=== PATIENT | male | born 1960 | race Caucasian/White ===

== ENCOUNTER 2016-10-11 15:32 | Inpatient (IN) | payer BC ==
[~2016-10-11] VITALS: Ht 182.9 cm; Wt 86.9 kg
[2016-10-15] MEDS ORDERED: MULTTAB67 PO (12:11)
[2016-10-15] MEDS ORDERED: AMLO5TAB2 PO (12:11)
[2016-10-15] MEDS ORDERED: ZYRT10CA PO (12:11)
[2016-10-15] MEDS ORDERED: HYDR-3516 PO (12:11)
[2016-10-15] MEDS ORDERED: HYDR25TA35 PO (12:11)
[2016-10-17] VITALS (8 sets, daily range): BP systolic 115–152; BP diastolic 73–95; PULSE 45–67; RESP 15–19; TEMP 97.5–98.7; O2SAT 97–99
[2016-10-17] MEDS ORDERED: LACTATED RINGER'S 1000 ML IV SCH (06:30)
[2016-10-17] MEDS ORDERED: SODIUM CHLORID 0.9% 500 ML IV SCH (06:30)
[2016-10-17] MEDS ORDERED: ceFAZolin 1,000 MG/NS 100 ML IV SCH ×2 (06:30)
[2016-10-17] MEDS ORDERED: INSULIN HUMAN REGULAR 1,000 UNITS/10 ML VIAL SQ PRN (06:30)
[2016-10-17] MEDS ORDERED: METOPROLOL TARTRATE 25 MG TAB PO PRN (06:30)
[2016-10-17] MEDS ORDERED: fentaNYL CITRATE 250 MCG/5 ML AMP ONE ×2 (07:23→11:22)
[2016-10-17] MEDS ORDERED: MIDAZOLAM HCL 2 MG/2 ML VIAL ONE (07:23)
[2016-10-17] MEDS ORDERED: THROMBIN (TOPICAL) 5,000 UNIT VIAL ONE (08:12)
[2016-10-17] MEDS ORDERED: GELFOAM SIZE 100 ONE (08:12)
[2016-10-17] MEDS ORDERED: GENTAMICIN SULFATE 80 MG/2 ML VIAL ONE (08:12)
[2016-10-17] MEDS ORDERED: LIDOCAINE 1%/EPINEPHrine 1:100,000 SOLN 20 ML VIAL ONE (08:12)
[2016-10-17] MEDS ORDERED: *morphine SULFATE 8 MG/ML PERIprocedure ONLY ONE (11:24)
[2016-10-17] MEDS: D5-1/2 NS + KCL 20 MEQ INJ 1,000 ML IV SCH ×2 (11:40→22:49)
[2016-10-17] MEDS ORDERED: oxyCODONE/ACETAMINOPHEN 5 MG/325 MG TAB PO PRN (11:45)
[2016-10-17] MEDS ORDERED: cloNIDine HCL 0.1 MG TAB PO PRN (11:45)
[2016-10-17] MEDS: ENALAPRILAT 1.25 MG/ML VIAL IV PUSH SCH ×2 (11:45→19:45)
[2016-10-17] MEDS ORDERED: SODIUM CHLORIDE 0.9% FLUSH 5 ML FLUSH IVF PRN (11:45)
[2016-10-17] MEDS ORDERED: HYDROmorphone HCL PF 1 MG/ML VIAL IV PRN ×2 (11:45)
[2016-10-17] MEDS ORDERED: NALOXONE HCL 0.4 MG/ML AMP IV PRN (11:45)
[2016-10-17] MEDS ORDERED: ONDANSETRON HCL 4 MG/2 ML VIAL IV PUSH ONE (12:00)
[2016-10-17] MEDS ORDERED: PROPOFOL 200 MG/20 ML AMP IV ONE (12:00)
[2016-10-17] MEDS ORDERED: NEOSTIGMINE 3 MG/3 ML SYR IV ONE (12:00)
[2016-10-17] MEDS ORDERED: LACTATED RINGER'S 1000 ML INJ 1,000 ML IV ONE (12:00)
[2016-10-17] MEDS ORDERED: DO NOT ADM ANY ANTICOAGULANT DRUGS XX PRN (12:15)
[2016-10-17] MEDS: hydrALAZINE HCL 25 MG TAB PO SCH ×2 (13:00→17:34)
--- NOTE | 2016-10-17 15:39 | PD.OP ---
Operative Report Date of Surgery: Oct 17, 2016 Preoperative Diagnosis: (1) Chronic subdural hematoma Chronic right hemisphere subdural hematoma Postoperative Diagnosis: (1) Chronic subdural hematoma Chronic right hemisphere subdural hematoma Procedure: Right frontal craniotomy for evacuation subacute subdural hematoma Anesthesia: Gen. Surgeon: Kalin Castellanos Land Examiner(s): Milly Thompson Operation and Findings: Findings: Large chronic-appearing right hemisphere subdural hematoma with thick chronic subdural membrane formation. Procedure in detail: The patient was brought into the operating room and general endotracheal anesthesia induced without difficulty. The Olivarez catheter, and sequential compression devices were in place. The lines were established per anesthesia. The patient was placed in semilateral position on the 3080 table with the head on the horseshoe headrest. All extremities were appropriately padded Appropriate timeout procedure was performed with all personnel present and in agreement The right side of the head was shaved with the clippers and sterilely prepped and draped 1% Xylocaine was used for local infiltration over the incision site which was made over the right frontal area in a curvilinear fashion and carried sharply down to the cranium through the temporalis muscle and fascia. The scalp and temporalis muscle flap were elevated in a single layer with the periosteal elevator and retracted over a laparotomy sponge with the large scalp hooks. The manual control auger press operator was used to place a single bur hole in the posterior left frontoparietal region and the craniotome was used since to incise the bone flap. The dura was moderately tense upon removal of the bone flap. The dura was opened in a cruciate fashion and the edges retracted with 4-0 Nurolon suture. The large underlying subdural hematoma was evacuated with gentle suction and irrigation until clear There was a thick subdural membrane, which was entirely removed with the [place] dissectors and biopsy forceps. The bipolar forceps were used to control any bleeding at the operative site, including the inner dura at the site of the subdural membrane formation. The brain was soft and pulsatile at the time of closure. A 7 mm flat fluted drain was left in place in the subdural space The drains was brought out through incisions in the posterior parietal region and secured to the skin with nylon suture The closure was performed with 2-0 Vicryl for the temporalis muscle fascia and galeal closure and alta for the skin closure. A dressing of sterile Telfa, 4 x 4's, and a loose head stockinette was applied. The patient was taken to recovery room in stable condition All counts were correct at the end of the case. Estimated blood loss was 150 cc No specimen was sent to pathology Kalin Castellanos MD Oct 17, 2016 15:39
[2016-10-17] MEDS: MORPHINE SULFATE 4 MG/ML INJ IV PRN ×2 (16:22→20:41)
[2016-10-17] MEDS: SODIUM CHLORIDE 0.9% FLUSH 5 ML FLUSH IVF SCH (21:00)
[2016-10-18] VITALS (15 sets, daily range): BP systolic 107–133; BP diastolic 69–86; PULSE 41–67; RESP 11–16; TEMP 97.9–98.9; O2SAT 12–99
[2016-10-18] MEDS: ACETAMINOPHEN/HYDROcodone 325 MG/10 MG TAB PO PRN ×5 (00:34→22:41)
[2016-10-18] MEDS: ENALAPRILAT 1.25 MG/ML VIAL IV PUSH SCH ×3 (03:45→20:00)
[2016-10-18 04:28] LABS: AUTOMATED NEUTROPHIL # 7.8 TH/MM3 (1.8-7.7); BASOPHIL % 0.2 % (0.0-2.0); EOSINOPHIL % 0.1 % (0.0-4.0); HEMATOCRIT 36.4 % (39.0-51.0); HEMO FLAGS DIFF FINAL; LYMPH % 10.6 % (9.0-44.0); MEAN CELL VOLUME 81.3 FL (80.0-100.0); MEAN CORPUSCULAR HEMOGLOBIN 28.2 PG (27.0-34.0); MEAN CORPUSCULAR HGB CONC 34.6 % (32.0-36.0); MONO % 10.1 % (0.0-8.0); PLATELET COUNT 268 TH/MM3 (150-450); RED BLOOD COUNT 4.48 MIL/MM3 (4.50-5.90); RED CELL DISTRIBUTION WIDTH 13.9 % (11.6-17.2); WHITE BLOOD COUNT 9.9 TH/MM3 (4.0-11.0)
[2016-10-18 04:36] LABS: APTT (PATIENT) 26.6 SEC (24.3-30.1); PROTHROMBIN TIME - PATIENT 11.1 SEC (9.8-11.6)
[2016-10-18 05:12] LABS: BICARBONATE 25.9 MEQ/L (21.0-32.0); POTASSIUM 3.7 MEQ/L (3.5-5.1)
--- NOTE | 2016-10-18 05:22 | RADRPT ---
EXAM DATE/TIME: 10/18/2016 04:52 [facility] COMPARISON: CT BRAIN W/O CONTRAST, July 13, 2016, 19:40. INDICATIONS : Follow up subural hematoma. Post operative. RADIATION DOSE: 47.15 CTDIvol (mGy) MEDICAL HISTORY : None SURGICAL HISTORY : Craniotomy. ENCOUNTER: Subsequent ACUITY: 1 month PAIN SCALE: Non-responsive LOCATION: cranial TECHNIQUE: Multiple contiguous axial images were obtained of the head. Using automated exposure control and adj ustment of the mA and/or kV according to patient size, radiation dose was kept as low as reasonably a chievable to obtain optimal diagnostic quality images. FINDINGS: Extra-axial drain is in place the rectal region following evacuation of subdural hematoma. Small volu me subdural hematoma remains. There is no significant mass effect or midline shift. No intraparenchym al hematoma is identified. Extensive mucosal disease is present in the paranasal sinuses. Posterior f diana structures are unremarkable. CONCLUSION: 1. Postsurgical changes as above.No acute intraparenchymal hematoma is identified Frandy Bates MD on October 18, 2016 at 5:18 Board Certified Radiologist. This report was verified electronically.
[2016-10-18] MEDS: MORPHINE SULFATE 4 MG/ML INJ IV PRN (05:40)
[2016-10-18] MEDS: D5-1/2 NS + KCL 20 MEQ INJ 1,000 ML IV SCH ×3 (08:10→20:00)
[2016-10-18] MEDS: hydrALAZINE HCL 25 MG TAB PO SCH ×3 (08:10→17:24)
[2016-10-18] MEDS: MULTIVITAMIN TAB PO SCH (08:10)
[2016-10-18] MEDS: CETIRIZINE HCL 10 MG TAB PO SCH (08:10)
[2016-10-18] MEDS: SODIUM CHLORIDE 0.9% FLUSH 5 ML FLUSH IVF SCH ×2 (08:10→20:00)
[2016-10-18] MEDS: amLODIPine BESYLATE 5 MG TAB PO SCH (08:10)
[2016-10-18] MEDS ORDERED: amLODIPine BESYLATE 5 MG TAB PO SCH (09:00)
--- NOTE | 2016-10-18 19:06 | HHI.NSPN ---
History Chief Complaint: mild headache Interval History Status post right craniotomy evacuation of chronic subdural hematoma 10/17/16 10/18/16: Postoperative CT scan satisfactory. Mild to moderate residual hematoma along the convexity. Exam Results Vital Signs Date Time Temp Pulse Resp B/P Pulse Ox O2 Delivery O2 Flow Rate FiO2 10/18/16 18:00 67 10/18/16 16:00 98.9 12 107/86 98 10/18/16 09:52 Nasal Cannula 2.00 10/17/16 20:28 21 Intake and Output 10/17/16 10/17/16 10/18/16 08:00 16:00 00:00 Intake Total 1220 ml 940 ml Output Total 600 ml 760 ml Balance 620 ml 180 ml Physical Examination Moderate drain output Cardiac regular without murmur Respirations clear to auscultation Abdomen soft without tenderness Incision dry and intact Awake and alert Oriented X 3 Speech is clear Conversant and appropriate Follow simple commands well Answers questions appropriately Reasonable judgment and insight Recent and remote memory are intact No evidence of anxiety or depression Pupils are equal and reactive to accommodation. Extra-ocular movements, visual christina to confrontation, facial sensorimotor, tongue, palate, sternocleidomastoid testing, hearing to finger rub testing, and bilateral shoulder shrug are all intact. Sensation is intact to light touch in all extremities Strength normal major flexion and extension groups all extremities Fay's absent bilaterally No ankle clonus Plantar responses absent bilateral Fine motor movements intact upper extremities Lab, Micro, Other Results Laboratory Tests Test 10/18/16 03:20 White Blood Count 9.9 TH/MM3 Red Blood Count 4.48 MIL/MM3 Hemoglobin 12.6 GM/DL Hematocrit 36.4 % Mean Corpuscular Volume 81.3 FL Mean Corpuscular Hemoglobin 28.2 PG Mean Corpuscular Hemoglobin 34.6 % Concent Red Cell Distribution Width 13.9 % Platelet Count 268 TH/MM3 Mean Platelet Volume 7.0 FL Neutrophils (%) (Auto) 79.0 % Lymphocytes (%) (Auto) 10.6 % Monocytes (%) (Auto) 10.1 % Eosinophils (%) (Auto) 0.1 % Basophils (%) (Auto) 0.2 % Neutrophils # (Auto) 7.8 TH/MM3 Lymphocytes # (Auto) 1.0 TH/MM3 Monocytes # (Auto) 1.0 TH/MM3 Eosinophils # (Auto) 0.0 TH/MM3 Basophils # (Auto) 0.0 TH/MM3 CBC Comment DIFF FINAL Differential Comment Prothrombin Time 11.1 SEC Prothromb Time International 1.0 RATIO Ratio Activated Partial 26.6 SEC Thromboplast Time Sodium Level 138 MEQ/L Potassium Level 3.7 MEQ/L Chloride Level 103 MEQ/L Carbon Dioxide Level 25.9 MEQ/L Anion Gap 9 MEQ/L Blood Urea Nitrogen 13 MG/DL Creatinine 0.90 MG/DL Estimat Glomerular Filtration 87 ML/MIN Rate Random Glucose 127 MG/DL Calcium Level 8.1 MG/DL Last Impressions Head CT 10/18/16 0600 Signed Impressions: Service Date/Time: Tuesday, October 18, 2016 04:52 - CONCLUSION: 1. Postsurgical changes as above.No acute intraparenchymal hematoma is identified Frandy Bates MD Medical Decision Making Impression and Plan Impression: 1. Stable neurologic exam postop day #1 right craniotomy evacuation of chronic subdural hematoma. Plan: Advanced diet Increased activity, out of bed Physical therapy DC IV fluids DC Olivarez catheter Continue draining at present Plan follow-up CT scan head 10/20/16 if remains neurologically stable with discontinuation of drain as indicated. Kalin Castellanos MD Oct 18, 2016 19:06
[2016-10-19] VITALS (14 sets, daily range): BP systolic 108–129; BP diastolic 66–81; PULSE 48–60; RESP 12–20; TEMP 97.6–98.4; O2SAT 92–97
[2016-10-19] MEDS: ENALAPRILAT 1.25 MG/ML VIAL IV PUSH SCH ×3 (03:45→19:45)
--- NOTE | 2016-10-19 08:05 | HHI.NSPN ---
History Chief Complaint: mild headache Interval History Status post right craniotomy evacuation of chronic subdural hematoma 10/17/16 10/18/16: Postoperative CT scan satisfactory. Mild to moderate residual hematoma along the convexity. 10/19/16: Pt with mild right frontal headache intermittently controlled with medication. He states his speech is improving. He also reports his strength in his hands is improving. Review of Systems General: Negative for: fever, chills, insomnia Respiratory: Negative for: shortness of breath, cough, sputum Cardiovascular: Negative for: chest pain Gastrointestinal: Negative for: nausea, vomitting, diarrhea, constipation Exam Results Vital Signs Date Time Temp Pulse Resp B/P Pulse Ox O2 Delivery O2 Flow Rate FiO2 10/19/16 07:00 95 Room Air 10/19/16 06:00 48 10/19/16 04:00 97.8 20 128/73 10/18/16 19:51 21 10/18/16 09:52 2.00 Intake and Output 10/18/16 10/18/16 10/19/16 08:00 16:00 00:00 Intake Total 1031 ml 1180 ml 1303 ml Output Total 855 ml 870 ml 590 ml Balance 176 ml 310 ml 713 ml Physical Examination Resp: CTA bilaterally Heart: NSR no murmurs Abd: Soft positive bs Skin: Incision clean and dry. No signs of infection. RODRÍGUEZ drain in place draining well. Muscle: Moves all 4 extremities well. Neuro: Pt awake and alert. Follows commands well speech clear and appropriate. Pupils 3mm bilaterally. Lab, Micro, Other Results Last Impressions Head CT 10/18/16 0600 Signed Impressions: Service Date/Time: Tuesday, October 18, 2016 04:52 - CONCLUSION: 1. Postsurgical changes as above.No acute intraparenchymal hematoma is identified Frandy Bates MD 10/18/16 10/18/16 10/19/16 15:00 23:00 07:00 Intake Total 1180 ml 1303 ml 1069 ml Output Total 870 ml 590 ml 570 ml Balance 310 ml 713 ml 499 ml Intake Oral 480 ml 600 ml 200 ml IV Total 700 ml 703 ml 869 ml Output Urine Total 750 ml 450 ml 400 ml Drainage Total 120 ml 140 ml 170 ml # Bowel Movements 0 0 Medical Decision Making Impression and Plan A: 56 y/o M s/p craniotomy for subdural hemorrhage evacuation. P: Follow up CT head tomorrow. Continue with RODRÍGUEZ drain for now Continue with rehab efforts. Barry Guardado Oct 19, 2016 08:05
[2016-10-19] MEDS: SODIUM CHLORIDE 0.9% FLUSH 5 ML FLUSH IVF SCH ×2 (08:21→20:42)
[2016-10-19] MEDS: CETIRIZINE HCL 10 MG TAB PO SCH (08:22)
[2016-10-19] MEDS: MULTIVITAMIN TAB PO SCH (08:22)
[2016-10-19] MEDS: hydrALAZINE HCL 25 MG TAB PO SCH ×3 (08:22→18:03)
[2016-10-19] MEDS: amLODIPine BESYLATE 5 MG TAB PO SCH (08:22)
[2016-10-19] MEDS: ACETAMINOPHEN/HYDROcodone 325 MG/10 MG TAB PO PRN ×3 (08:28→18:03)
[2016-10-19] MEDS: D5-1/2 NS + KCL 20 MEQ INJ 1,000 ML IV SCH ×2 (13:32→23:33)
[2016-10-20] VITALS (13 sets, daily range): BP systolic 117–135; BP diastolic 67–81; PULSE 52–65; RESP 12–16; TEMP 97.5–98.3; O2SAT 93–95
[2016-10-20] MEDS ORDERED: ATROPINE SULFATE 1 MG/10 ML SYRINGE ONE (03:05)
[2016-10-20] MEDS ORDERED: EPINEPHrine HCL (1:10,000) 1 MG/10 ML SYRINGE ONE (03:05)
[2016-10-20] MEDS ORDERED: LIDOCAINE HCL 2% 100 MG/5 ML SYRINGE ONE (03:06)
[2016-10-20] MEDS: ENALAPRILAT 1.25 MG/ML VIAL IV PUSH SCH ×3 (03:45→19:45)
[2016-10-20] MEDS: ACETAMINOPHEN/HYDROcodone 325 MG/10 MG TAB PO PRN ×5 (04:36→21:48)
--- NOTE | 2016-10-20 05:12 | RADRPT ---
EXAM DATE/TIME: 10/20/2016 04:54 [facility] COMPARISON: CT BRAIN W/O CONTRAST, October 18, 2016, 4:52. INDICATIONS : Follow up subdural hematoma. RADIATION DOSE: 56.35 CTDIvol (mGy) MEDICAL HISTORY : Hypertension. SURGICAL HISTORY : Craniotomy. ENCOUNTER: Subsequent ACUITY: 2 days PAIN SCALE: 0/10 LOCATION: cranial TECHNIQUE: Multiple contiguous axial images were obtained of the head. Using automated exposure control and adj ustment of the mA and/or kV according to patient size, radiation dose was kept as low as reasonably a chievable to obtain optimal diagnostic quality images. FINDINGS: There is still postsurgical changes with extra-axial drain in place. There has been no significant ch kieran when compared to the prior exam. No acute hemorrhage is seen. A small amount of pneumocephalus i s present in the right frontopolar region. Posterior fossa structures are unremarkable. Extensive sin us disease is present with sparing of the sphenoid. CONCLUSION: 1. Stable postsurgical changes. No acute hemorrhage is identified Frandy Bates MD on October 20, 2016 at 5:09 Board Certified Radiologist. This report was verified electronically.
--- NOTE | 2016-10-20 06:57 | HHI.NSPN ---
(Barry Guardado) History Chief Complaint: mild headache (Barry Guardado) Interval History Status post right craniotomy evacuation of chronic subdural hematoma 10/18/16: Postoperative CT scan satisfactory. Mild to moderate residual hematoma along the convexity. 10/19/16: Pt with mild right frontal headache intermittently controlled with medication. He states his speech is improving. He also reports his strength in his hands is improving.10/20/16 10/17/16: Pt awake with right frontal headache intermittently controlled with pain medication. No nausea or vomiting. No weakness or paresthesias. Pt states speech and hand strength continue to improve. (Barry Guardado) Exam Results Vital Signs Date Time Temp Pulse Resp B/P Pulse Ox O2 Delivery O2 Flow Rate FiO2 10/20/16 06:00 52 10/20/16 04:00 97.7 12 135/77 94 10/19/16 21:10 21 10/19/16 19:00 Room Air 10/18/16 09:52 2.00 Intake and Output 10/19/16 10/19/16 10/20/16 08:00 16:00 00:00 Intake Total 1069 ml 1141 ml 964 ml Output Total 570 ml 140 ml 840 ml Balance 499 ml 1001 ml 124 ml (Barry Guardado) Physical Examination Resp: CTA bilaterally Heart: NSR no murmurs Abd: Soft positive bs Skin: Incision clean and dry. No signs of infection. RODRÍGUEZ drain in place draining well. Muscle: Moves all 4 extremities well. Neuro: Pt awake and alert. Follows commands well speech clear and appropriate. Pupils 3mm bilaterally. (Barry Guardado) Lab, Micro, Other Results Last Impressions Head CT 10/18/16 0600 Signed Impressions: Service Date/Time: Tuesday, October 18, 2016 04:52 - CONCLUSION: 1. Postsurgical changes as above.No acute intraparenchymal hematoma is identified Frandy Bates MD 10/19/16 10/19/16 10/20/16 15:00 23:00 07:00 Intake Total 1141 ml 964 ml 1070 ml Output Total 140 ml 840 ml 665 ml Balance 1001 ml 124 ml 405 ml Intake Oral 480 ml 400 ml 350 ml IV Total 661 ml 564 ml 720 ml Output Urine Total 775 ml 600 ml Drainage Total 140 ml 65 ml 65 ml # Voids 1 # Bowel Movements 0 0 0 (Barry Guardado) Medical Decision Making Impression and Plan A: 56 y/o M s/p craniotomy for subdural hemorrhage evacuation. P: Discontinue RODRÍGUEZ drain. Continue with rehab efforts. Addendum: RODRÍGUEZ exit site was cleaned with Betadine swab. Sterile field was used. 1.5 cc of Lidocaine 1% with epi was used for local anesthetic. RODRÍGUEZ drain was removed. Two alta were placed using sterile technique. Pt did well. All needles were counted and disposed of in sharps container. (Barry Guardado ) Attending Statement The exam, history, and the medical decision-making described in the above note were completed with the assistance of the mid-level provider. I reviewed and agree with the findings presented. I attest that I had a [id number] encounter with the patient on the same day, and personally performed and documented my assessment and findings in the medical record. Improved postoperative CT scan and will DC subdural drain and transfer to floor. (Jeff Corral MD) Barry Guardado Oct 20, 2016 06:57 Jeff Corral MD Oct 20, 2016 09:26
[2016-10-20] MEDS: hydrALAZINE HCL 25 MG TAB PO SCH ×3 (08:35→17:57)
[2016-10-20] MEDS: MULTIVITAMIN TAB PO SCH (08:35)
[2016-10-20] MEDS: CETIRIZINE HCL 10 MG TAB PO SCH (08:35)
[2016-10-20] MEDS: SODIUM CHLORIDE 0.9% FLUSH 5 ML FLUSH IVF SCH ×2 (08:36→19:53)
[2016-10-20] MEDS: amLODIPine BESYLATE 5 MG TAB PO SCH (08:36)
[2016-10-20] MEDS: D5-1/2 NS + KCL 20 MEQ INJ 1,000 ML IV SCH (08:37)
[2016-10-20] MEDS ORDERED: LIDOCAINE 1%/EPINEPHrine 1:100,000 SOLN 20 ML VIAL INFIL ONE (10:00)
[2016-10-21] VITALS: BP 126/77; PULSE 60; RESP 19; TEMP 98.2; O2SAT 95
[2016-10-21 03:00] VITALS: BP 137/76; PULSE 59; RESP 20; TEMP 99.2; O2SAT 96
[2016-10-21] MEDS: ACETAMINOPHEN/HYDROcodone 325 MG/10 MG TAB PO PRN ×3 (03:13→12:54)
[2016-10-21] MEDS: ENALAPRILAT 1.25 MG/ML VIAL IV PUSH SCH ×2 (03:45→11:45)
[2016-10-21 08:00] VITALS: BP_SYST 119; BP_SYST 121; BP_DIAS 64; BP_DIAS 83; PULSE 56; PULSE 75; RESP 18; RESP 20; TEMP 97.9; TEMP 98.1; O2SAT 94; O2SAT 96
[2016-10-21] MEDS: amLODIPine BESYLATE 5 MG TAB PO SCH (08:49)
[2016-10-21] MEDS: hydrALAZINE HCL 25 MG TAB PO SCH ×2 (08:49→12:48)
[2016-10-21] MEDS: MULTIVITAMIN TAB PO SCH (08:49)
[2016-10-21] MEDS: CETIRIZINE HCL 10 MG TAB PO SCH (08:49)
[2016-10-21] MEDS: SODIUM CHLORIDE 0.9% FLUSH 5 ML FLUSH IVF SCH (08:50)
[2016-10-21 09:51] VITALS: O2SAT 96
[2016-10-21 12:00] VITALS: BP 116/78; PULSE 74; RESP 18; TEMP 97.7; O2SAT 96
--- NOTE | 2016-10-21 16:16 | HHI.DCPOC ---
Discharge Care Plan Diagnosis: (1) Chronic subdural hematoma Your Health Problems Are: Difficulty with ADL Incision/Drains Exercise Tolerance Goals to Promote Your Health * To prevent worsening of your condition and complications * To maintain your health at the optimal level Directions to Meet Your Goals Take your medications as prescribed Follow your dietary instruction Follow activity as directed Keep your appointments as scheduled Take your immunizations and boosters as scheduled If your symptoms worsen call your PCP, if no PCP go to Urgent Care Center or Emergency Room Smoking is Dangerous to Your Health. Avoid second hand smoke Call the 24-hour hour crisis hotline for domestic abuse at Kalin Castellanos MD Oct 21, 2016 16:16
--- NOTE | 2016-10-21 16:23 | HHI.DS ---
Discharge Summary Admission Date Oct 17, 2016 at 05:46 Discharge Date: Oct 21, 2016 Admitting Diagnosis Right hemisphere chronic subdural hematoma (1) Chronic subdural hematoma Diagnosis: Principal Procedures Date of Surgery: Oct 17, 2016 Preoperative Diagnosis: (1) Chronic subdural hematoma Chronic right hemisphere subdural hematoma Postoperative Diagnosis: (1) Chronic subdural hematoma Chronic right hemisphere subdural hematoma Procedure: Right frontal craniotomy for evacuation subacute subdural hematoma CBC/BMP: 10/18/16 0320 10/18/16 0320 Imaging Last Impressions Head CT 10/20/16 0600 Signed Impressions: Service Date/Time: Thursday, October 20, 2016 04:54 - CONCLUSION: 1. Stable postsurgical changes. No acute hemorrhage is identified Frandy Bates MD PE at Discharge Awake and alert Respirations clear Pulse regular Incision dry and intact Speech clear and appropriate Extraocular movements intact Sensation intact to all extremities Moves all extremities well with good strength to command Ambulates without assist Hospital Course Patient admitted for above noted procedure performed without complication. Uncomplicated postoperative course. Physical therapy postoperative. Drain discontinued 10/20/16 10/21/16, vital signs stable, tolerating diet well, pain well controlled with oral medications, ambulating safely. Pt Condition on Discharge: Stable Discharge Disposition: Discharge Home Discharge Instructions DIET: Follow Instructions for: As Tolerated, No Restrictions ACTIVITIES You can perform: Weight Bearing As Fred Activities to Avoid: Lifting/Bending, Strenuous Activity Follow up Referrals: Appointment for Follow Up @ Dr. Kalin Castellanos Continued Medications: Amlodipine (Amlodipine) 5 Mg Tab 5 MG PO DAILY Blood Pressure Management #30 Ref 0 TAB Cetirizine (Zyrtec Allergy) 10 Mg Cap 10 MG PO DAILY Allergies Ref 0 CAP Hydralazine (Hydralazine) 25 Mg Tab 25 MG PO TID Take with a meal Blood Pressure Management #90 Ref 0 TAB Hydrocodone-Acetaminophen (Hydrocodone-Acetaminophen) 5-325 mg Tab 1 TAB PO Q6H PRN PAIN Ref 0 TAB Multiple Vitamin (Multiple Vitamin) 1 Tab 1 TAB PO DAILY Nutritional Supplement Ref 0 TAB Kalin Castellanos MD Oct 21, 2016 16:23
--- NOTE | 2016-10-21 16:43 | HHI.NSPN ---
History Chief Complaint: mild headache Interval History Status post right craniotomy evacuation of chronic subdural hematoma 10/17/16 10/18/16: Postoperative CT scan satisfactory. Mild to moderate residual hematoma along the convexity. 10/20/16: CT scan head postoperative satisfactory. Drains removed 10/21/16: Incision dry. Awake and alert. No focal neurologic deficit. Exam Results Vital Signs Date Time Temp Pulse Resp B/P Pulse Ox O2 Delivery O2 Flow Rate FiO2 10/21/16 13:01 96 Room Air 10/21/16 12:00 97.7 74 18 116/78 10/21/16 09:51 1.00 10/20/16 07:48 21 Intake and Output 10/20/16 10/20/16 10/21/16 08:00 16:00 00:00 Intake Total 1070 ml 1238 ml 964 ml Output Total 665 ml 70 ml 580 ml Balance 405 ml 1168 ml 384 ml Physical Examination Resp: CTA bilaterally Heart: NSR no murmurs Abd: Soft positive bs Skin: Incision clean and dry. No signs of infection. RODRÍGUEZ drain has been removed Muscle: Moves all 4 extremities well. Neuro: Pt awake and alert. Follows commands well speech clear and appropriate. Pupils 3mm bilaterally. Ambulating well without assistance. Medical Decision Making Impression and Plan Impression: 1. Stable neurologic exam following right craniotomy for chronic subdural hematoma. 10/20/[address] scan had satisfactory Plan: Continue regular diet Physical therapy notes reviewed Findings discussed at length with the patient and his family in the patient's room today. He appears stable for discharge home today Wound care, activity precautions, signs and symptoms to watch for have been fully discussed. Follow-up appointment tentatively 10/30/16 at 10:30 AM. He will notify our office if any problems arise. He states that he has hydrocodone at home, and does not request any additional medications at this time. Kalin Castellanos MD Oct 21, 2016 16:43
[2016-10-30] MEDS ORDERED: HYDR-3516 PO (10:33)
[2016-11-27] MEDS ORDERED: LIDO5DIS35 TOPICAL (15:42)
[2017-03-12] MEDS ORDERED: HYDR-3801 PO (14:43)
[2017-03-12] MEDS ORDERED: CETI10 PO (14:43)
== END 2016-10-21 17:02 | disposition home or self-care (01) | DRG 27 ==
LOC: HSDI 10-17 05:46 → N03A 10-17 13:45 → N05B 10-21 03:02
PROVIDERS: ADMIT Neurological Surgery; ATTEND Neurological Surgery
PROC: 00B20ZZ Excision of Dura Mater, Open Approach (ICD-10-PCS; 2016-10-17)
PROC: 00940ZZ Drainage of Intracranial Subdural Space, Open Approach (ICD-10-PCS; principal; 2016-10-17 08:29)
DX: I62.03 Nontraumatic chronic subdural hemorrhage (principal); I10 Essential (primary) hypertension; K21.9 Gastro-esophageal reflux disease without esophagitis; F17.210 Nicotine dependence, cigarettes, uncomplicated; F10.10 Alcohol abuse, uncomplicated
CPT/HCPCS: 36415; 70450; 71020; 80048; 85025; 85027; 85610; 85730; 93005; 94150; C1713; J0171; J0461; J0690; J1170; J1580; J2250; J2270; J2405; J2710; J3010; J3480; J7120

== ENCOUNTER → 2016-10-15 | Outpatient (CLI) | payer BC ==
[~2016-10-15] MED LIST: AMLO5 PO; AMLO5TAB2 PO; BACT400T PO; CETI10 PO; HYDR-3516 PO; HYDR-3801 PO; HYDR25TA35 PO; HYDR50TA15 PO; LIDO5DIS35 TOPICAL; MULTTAB67 PO; NAPR250T PO; Pill Splitter OTHER; ZYRT10CA PO
[2016-10-15 12:20] LABS: HEMATOCRIT 42.8 % (39.0-51.0); MEAN CELL VOLUME 81.4 FL (80.0-100.0); MEAN CORPUSCULAR HEMOGLOBIN 27.8 PG (27.0-34.0); MEAN CORPUSCULAR HGB CONC 34.1 % (32.0-36.0); PLATELET COUNT 251 TH/MM3 (150-450); RED BLOOD COUNT 5.26 MIL/MM3 (4.50-5.90); REVIEW FLAG FINAL; WHITE BLOOD COUNT 6.4 TH/MM3 (4.0-11.0)
[2016-10-15 12:30] LABS: APTT (PATIENT) 29.8 SEC (24.3-30.1); PROTHROMBIN TIME - PATIENT 10.7 SEC (9.8-11.6)
[2016-10-15 13:01] LABS: BICARBONATE 29.6 MEQ/L (21.0-32.0); POTASSIUM 4.3 MEQ/L (3.5-5.1)
--- NOTE | 2016-10-15 13:21 | RADRPT ---
EXAM DATE/TIME: 10/15/2016 12:58 [facility] COMPARISON: CT BRAIN W/O CONTRAST, July 13, 2016, 19:40. INDICATIONS : Evaluate for penumonia, penumothorax, or communicable disease. Pre op for craniotomy. MEDICAL HISTORY : Hypercholesterolemia. Gastroesophageal reflux disease. Arthritis. Asthma. Degenerative disc disea se.Smoker. SURGICAL HISTORY : Vasectomy ENCOUNTER: Initial ACUITY: 1 day PAIN SCORE: 0/10 LOCATION: chest FINDINGS: PA and lateral views of the chest demonstrate the lungs to be symmetrically aerated without evidence of mass, infiltrate or effusion. The cardiomediastinal contours are unremarkable. Osseous structure s are intact. CONCLUSION: No acute disease. Alina Mckenzie MD on October 15, 2016 at 13:19 Board Certified Radiologist. This report was verified electronically.
--- NOTE | 2016-10-16 22:50 | EKG ---
Date Performed: 10/15/2016 Time Performed: 12:02:51 PTAGE: 56 years EKG: SINUS BRADYCARDIA BORDERLINE ECG NO PREVIOUS TRACING DOCTOR: Eduardo Sharif Interpretating Date/Time 10/16/2016 22:46:18
== END ==
LOC: CPRE 11:23
PROVIDERS: ATTEND Neurological Surgery
DX: Z01.810 Encounter for preprocedural cardiovascular examination (principal); Z01.812 Encounter for preprocedural laboratory examination; M25.512 Pain in left shoulder; R41.840 Attention and concentration deficit; S06.9X1D Unspecified intracranial injury with loss of consciousness of 30 minutes or less, subsequent encounter; D18.1 Lymphangioma, any site; Z79.01 Long term (current) use of anticoagulants; R00.1 Bradycardia, unspecified
CPT/HCPCS: 36415; 71020; 80048; 85027; 85610; 85730; 93005

== ENCOUNTER 2017-01-16 16:19 | Emergency (ER) | payer BC ==
[~2017-01-16] VITALS: Ht 185.4 cm; Wt 86.0 kg
[~2017-01-16 16:19] MED LIST changes: -AMLO5 PO; -BACT400T PO; -CETI10 PO; -HYDR-3801 PO; -HYDR50TA15 PO; -NAPR250T PO; -Pill Splitter OTHER
[2017-01-16 16:21] VITALS: BP 157/96; PULSE 68; RESP 20; TEMP 98.5; O2SAT 98
--- NOTE | 2017-01-16 17:50 | PD ---
Physical Exam Time Seen by Provider: 17:47 Narrative 56yo M with nystagmus x 3-[address] Castellanos for CT scan. TBI in October w/ craniotomy. Dizziness with sudden movement. Denies BOWEN, lightheadedness, vomiting. Also complaining of "dent" in head to craniotomy site. VSS. Patient seen in triage. Awaiting bed placement. Data Data Last Documented VS Vital Signs Date Time Temp Pulse Resp B/P Pulse Ox O2 Delivery O2 Flow Rate FiO2 01/16/17 16:21 98.5 68 20 157/96 98 Room Air [facility] Supervised Visit with YKLE: Rebeka Lewis Jan 16, 2017 17:50
[2017-01-16] MEDS ORDERED: BACT400T PO (19:45)
--- NOTE | 2017-01-16 20:08 | RADRPT ---
EXAM DATE/TIME: 01/16/2017 19:44 [facility] COMPARISON: CT BRAIN W/O CONTRAST, October 20, 2016, 4:54. INDICATIONS : Previous TIA and craniotomy; depression of craniotomy site. RADIATION DOSE: 43.88 CTDIvol (mGy) MEDICAL HISTORY : Hypertension. Cerebrovascular disease. Stroke. SURGICAL HISTORY : Craniotomy. ENCOUNTER: Initial ACUITY: 1 day PAIN SCALE: 0/10 LOCATION: cranial TECHNIQUE: Multiple contiguous axial images were obtained of the head. Using automated exposure control and adj ustment of the mA and/or kV according to patient size, radiation dose was kept as low as reasonably a chievable to obtain optimal diagnostic quality images. FINDINGS: There has been previous right frontal craniotomy. The replaced flap appears stable in position and ap pearance. Brain is benign in appearance with minimal spontaneously dense thickening of the subjacent dura. The brain is elsewhere symmetric and unremarkable. Ventricles are normal. There is extensive confluent mucosal sinus disease. The mastoids and middle ear cavities are clear. CONCLUSION: Benign brain appearance. Craniotomy flap appear satisfactory and stable. Extensive sinus disease Aki Ratliff MD on January 16, 2017 at 20:00 Board Certified Radiologist. This report was verified electronically.
--- NOTE | 2017-01-16 20:18 | PD ---
HPI Chief Complaint: Eye Problems/Injury Time Seen by Provider: 19:30 Travel History International Travel<30 days: No Contact w/Intl Traveler<30days: No Traveled to known affect area: No History of Present Illness HPI Patient is a 56-year-old male presenting to emergency for evaluation of nystagmus, memory issues, and evaluation of his surgical site. Patient had a craniotomy in October to evacuate a subdural hematoma. His states that he has had issues with his eyes jerking back and forth for the last 2 days. She states it lasts about 2-3 seconds. Patient has not had any visual changes or awareness of the nystagmus. Patient does state that craniotomy site appears more indented. He also reports that his memory has gotten worse over the last 4 -6 weeks. Patient is followed by Dr. Castellanos, and he was advised to him to emergency department to have the CT scan performed. Patient had shoulder surgery Friday and has been on pain medication for this. He also states he has not been sleeping well since surgery due to the pain. PFSH Past Medical History Arthritis: Yes Asthma: Yes Autoimmune Disease: No Anxiety: Yes Depression: No Heart Rhythm Problems: No Cancer: No High Cholesterol: Yes (Doesn't take meds) Chemotherapy: No Chest Pain: No Congestive Heart Failure: No COPD: No Cerebrovascular Accident: No Diabetes: No Endocrine: No Gastrointestinal Disorders: Yes (previous hx of acid reflux, resolved, no meds) GERD: Yes Genitourinary: No Hepatitis: No Hiatal Hernia: No Hypertension: Yes (on meds) Immune Disorder: No Implanted Vascular Access Dvce: Yes Medical other: Yes (seasonal allergies) Musculoskeletal: Yes (left shoulder poss torn rotator cuff, bilat knee pain) Neurologic: Yes (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, [place] hematoma 10/2016) Reproductive: No Migraines: Yes Radiation Therapy: No Seizures: No Sickle Cell Disease: No Sleep Apnea: No Thyroid Disease: No Ulcer: No Tetanus Vaccination: Unknown Past Surgical History Abdominal Surgery: No AICD: No Arteriovenous Shunt: No Cardiac Surgery: No Ear Surgery: No Endocrine Surgery: No Eye Surgery: No Genitourinary Surgery: No Gynecologic Surgery: No Insulin Pump: No Joint Replacement: No Neurologic Surgery: Yes (craniotomy with evacuation of subdural hematoma 10/22) Oral Surgery: No Pacemaker: No Thoracic Surgery: No Other Surgery: Yes (left shoulder surgery 01/20) Social History Alcohol Use: Yes (occ) Tobacco Use: Yes (vaporizer) Substance Use: No Allergies-Medications (Allergen,Severity, Reaction): Coded Allergies: No Known Allergies (Unverified , 01/16/17) Reported Meds & Prescriptions Reported Meds & Active Scripts Active Lidoderm Patch 12 HR (Lidocaine) 5% Patch 1 Patch TOPICAL DAILY Remove patch after 12 hours apply to L shoulder Reported Bactrim (Sulfamethoxazole-Trimethoprim) 400-80 Mg Tab 1 Tab PO BID Zyrtec Allergy (Cetirizine HCl) 10 Mg Cap 10 Mg PO DAILY Multiple Vitamin 1 Tab 1 Tab PO DAILY Hydrocodone-Acetaminophen 5-325 mg Tab 1 Tab PO Q6H PRN Hydralazine (Hydralazine HCl) 25 Mg Tab 25 Mg PO TID Take with a meal Amlodipine (Amlodipine Besylate) 5 Mg Tab 5 Mg PO DAILY Review of Systems Except as stated in HPI: all other systems reviewed are Neg Eyes: Positive: Other (nystagmus), No: Visual changes HENT: No: Headaches Cardiovascular: No: Chest Pain or Discomfort Respiratory: No: Shortness of Breath Gastrointestinal: No: Nausea, Abdominal Pain Musculoskeletal: No: Myalgias Neurologic: Positive: Dizziness, Other (memory issues) Physical Exam Narrative GENERAL: Well-developed, well-nourished, alert male. Resting comfortably in no acute distress SKIN: Focused skin assessment warm/dry. HEAD: Atraumatic. Normocephalic. Fissure from previous craniotomy to right anterior scalp. EYES: Pupils equal and round. No scleral icterus. No injection or drainage. Extraocular movements are intact. ENT: No nasal bleeding or discharge. Mucous membranes pink and moist. NECK: Trachea midline. No JVD. CARDIOVASCULAR: Regular rate and rhythm. No murmur appreciated. RESPIRATORY: No accessory muscle use. Clear to auscultation. Breath sounds equal bilaterally. GASTROINTESTINAL: Abdomen soft, non-tender, nondistended. Hepatic and splenic margins not palpable. MUSCULOSKELETAL: No obvious deformities. No clubbing. No cyanosis. No edema. NEUROLOGICAL: Awake and alert. No obvious cranial nerve deficits. Motor grossly within normal limits. Normal speech. PSYCHIATRIC: Appropriate mood and affect; insight and judgment normal. Data Data Last Documented VS Vital Signs Date Time Temp Pulse Resp B/P Pulse Ox O2 Delivery O2 Flow Rate FiO2 01/16/17 16:21 98.5 68 20 157/[address] Brain W/O Iv Contrast(Rout) (01/16/17 ) MDM Medical Decision Making Medical Screen Exam Complete: Yes Emergency Medical Condition: Yes Interpretation(s) Vital Signs Date Time Temp Pulse Resp B/P Pulse Ox O2 Delivery O2 Flow Rate FiO2 01/16/17 16:21 98.5 68 20 157/96 98 Room Air Differential Diagnosis Mass versus hemorrhage versus residual effects of TBI versus other Narrative Course Patient is a 56-year-old male presenting to the emergency department for evaluation of nystagmus, memory issues and indented bone flap from his craniotomy in October. Patient's vital signs are stable, patient appears neurologically intact him his exam is nonfocal.. CT scan ordered and shows benign brain appearance, craniotomy flap appears stable and satisfactory. Extensive sinus disease noted. Dr. Castellanos paged, discussed with Dr. Castellanos patient's resenting complaint as well as physical exam findings. He reviewed the CT scan and stated patient could go home, there were no acute findings. Patient was advised of this. He can follow -up in the office as scheduled. Patient was advised to return to emergency department for any new or worsening symptoms. Patient is stable for discharge Diagnosis Primary Impression: Transient neurological symptoms Referrals: Kalin Castellanos MD 3 days Additional Instructions: Follow-up with Dr. Castellanos in the office Return to emergency department for any new or worsening symptoms Med/Other Pt SpecificInfo: No Change to Meds Disposition: 01 DISCHARGE HOME Condition: Stable Kassi Arteaga [facility] Jan 16, 2017 20:18
[2017-01-16 21:23] VITALS: BP 148/88; PULSE 66; RESP 18; O2SAT 99
[2017-03-12] MEDS ORDERED: HYDR-3801 PO (14:43)
[2017-03-12] MEDS ORDERED: CETI10 PO (14:43)
== END 2017-01-16 21:34 | disposition home or self-care (01) ==
LOC: NEPD 16:19
DX: R41.840 Attention and concentration deficit (principal); S06.9X0A Unspecified intracranial injury without loss of consciousness, initial encounter; I10 Essential (primary) hypertension; F41.8 Other specified anxiety disorders; X58.XXXA Exposure to other specified factors, initial encounter
CPT/HCPCS: 70450